=== PATIENT | female | born 1950 | race Caucasian/White ===

== ENCOUNTER 2017-04-13 11:57 | Emergency (ER) | payer OTHER ==
[2017-04-13 12:18] VITALS: RESP 18; TEMP 98.2; O2SAT 94
--- NOTE | 2017-04-13 13:27 | EDPHY ---
H & P Stated Complaint: cough/chest congestion/having coughing "fits" Time Seen by Provider: 04/13/17 12:55 HPI/ROS: CHIEF COMPLAINT: Cough HISTORY OF PRESENT ILLNESS: This is a generally healthy 66-year-old female who presents with 6 days of paroxysmal coughing. The illness began with a"scratchy throat". She then began to cough and felt that the cold had settled into her chest. She is now having coughing fits, sometimes coughing until she almost vomits. She does not think that her pertussis has ever been updated. She has not had fever myalgias. She notes some right lower back chest pain with coughing and reports a history of"cracked ribs"after a fall about a year and half ago. She does not feel short of breath. She has not had calf pain or swelling and has no personal or family history of VTE. REVIEW OF SYSTEMS: A ten point review of systems was performed and is negative with the exception of the items mentioned in the HPI. Past medical history: Detached retina right eye, right rib injury related to a fall 1-1/2 years ago Social history: She lives with her . No tobacco use. She is retired. General Appearance: Alert. Vital signs reviewed. Occasional dry cough. Eyes: Pupils equal and round, no conjunctival injection, no discharge. Anicteric. ENT, Mouth: Mucous membranes are moist, no oropharyngeal erythema or edema. Neck: No lymphadenopathy, supple. Respiratory: Lungs are clear to auscultation; no wheezes, rales, or rhonchi. Cardiovascular: Regular rate and rhythm; no murmur, rub, or gallop. Gastrointestinal: Abdomen is soft and nontender, no masses or organomegaly, bowel sounds normal. Skin: Warm and dry, no rashes on exposed skin, normal color. Back: Nontender to palpation over the thoracolumbar spine. No CVAT. Extremities: No lower extremity edema, no calf tenderness or swelling. Neurological: Alert and oriented. Moving all four extremities easily and equally. Psychiatric: Normal affect. - Personal History Current Tetanus/Diphtheria Vaccine: Yes - Medical/Surgical History Hx Asthma: No Hx Chronic Respiratory Disease: No Hx Diabetes: No Hx Cardiac Disease: No Hx Renal Disease: No Hx Cirrhosis: No Hx Alcoholism: No Hx HIV/AIDS: No Hx Splenectomy or Spleen Trauma: No Other PMH: r detached retina - Social History Smoking Status: Never smoked Constitutional: Initial Vital Signs Temperature (C) 36.8 C 04/13/17 12:15 Heart Rate 78 04/13/17 12:15 Respiratory Rate 18 04/13/17 12:15 Blood Pressure 111/78 04/13/17 12:15 O2 Sat (%) 94 04/13/17 12:15 O2 Delivery Mode Room Air Allergies/Adverse Reactions: adhesive Allergy (Verified 04/13/17 12:15) Penicillins Allergy (Verified 04/13/17 12:15) Home Medications: Medication Instructions Recorded traZODone 01/28/16 Benzonatate [Tessalon Pearles (RX)] 100 mg PO TID #15 cap 04/13/17 HYDROcodone/HOMATROPINE HYCODA 1 tsp PO Q4-6PRN PRN #120 ml 04/13/17 [Hycodan Syrup (*)] Medical Decision Making - Diagnostics Imaging: Discussed imaging studies w/ control room supervisor Radiologist ED Course/Re-evaluation: 66-year-old female with cough. She tested positive for RSV. Symptomatic measures reviewed with her. She is not febrile, hypoxic, tachypneic, or in significant pain. Do not think that she has pneumonia based upon her chest x- ray. She does appear to have bilateral atelectasis and there are signs of old granulomatous disease that were seen on a previous x-ray also. I feel that she can safely care for herself at home. We discussed the danger signs that should prompt her to be re-evaluated. Differential Diagnosis: I considered a differential diagnosis that includes but is not limited to PE, pneumothorax, pneumonia, bronchitis, influenza, RSV. Departure - Departure Disposition: Home, Routine, Self-Care Clinical Impression: RSV (respiratory syncytial virus infection) Condition: Good Instructions: Respiratory Syncytial Virus (ED) Additional Instructions: Adult Pain & Fever Control: We recommend Acetaminophen (Tylenol) and Ibuprofen (Motrin,Advil) for pain and fever control. When fever is high or pain severe, both drugs can be used at the same time, but at different intervals. Please note the time differences. Your dose is: Acetaminophen 650mg every 4 to 6 hours Ibuprofen 400mg every 6 hours with food OR Note: do not take Acetaminophen with Hydrocodone (Vicodin, Lortab) or Oycodone (Percocet). These medications also contain Acetaminophen. No more than 3000mg of Acetaminophen should be taken in 24 hours (for an adult). Try the Tessalon Perles for cough. I have also written you for cough syrup, Hycodan. This contains a narcotic. You can try it at night to see if that helps you sleep. Do not return to work until you are 100% better. Referrals: JOSE ALEJANDRO PEÑA [Primary Care Provider] - As per Instructions Prescriptions: Benzonatate [Tessalon Pearles (RX)] 100 mg PO TID #15 cap HYDROcodone/HOMATROPINE HYCODA [Hycodan Syrup (*)] 1 tsp PO Q4-6PRN PRN #120 ml PRN Reason: cough
[2017-04-13 14:15] VITALS: BP 147/91; PULSE 76
== END 2017-04-13 14:15 | disposition home or self-care (01) ==
DX: R05 Cough (principal); B97.4 Respiratory syncytial virus as the cause of diseases classified elsewhere